=== PATIENT | female | born 1955 | race Caucasian/White ===

== ENCOUNTER → 2019-07-23 15:00 | Oncology outpatient (ONC) | payer OTHER, SELFPAY ==
[2019-07-08 09:07] VITALS: BP 121/75; PULSE 57; RESP 15; TEMP 37.1; O2SAT 98
[2019-07-08] MEDS: IRON SUCROSE 100 MG/5 ML VIAL 25 MG IV (09:22)
[2019-07-08] MEDS: IRON SUCROSE 175 MG in SODIUM CHLORIDE 0.9% 100 ML 435 ML IV (09:44)
[2019-07-10 09:16] VITALS: BP 117/77; PULSE 67; RESP 16; TEMP 36.8; O2SAT 97
[2019-07-10] MEDS: IRON SUCROSE 200 MG in SODIUM CHLORIDE 0.9% 100 ML 440 ML IV (09:21)
[2019-07-16] MEDS: IRON SUCROSE 200 MG in SODIUM CHLORIDE 0.9% 100 ML 440 ML IV (09:22)
[2019-07-16 09:30] VITALS: BP 121/81; PULSE 58; RESP 18; TEMP 36.4; O2SAT 98
[2019-07-21] MEDS: IRON SUCROSE 200 MG in SODIUM CHLORIDE 0.9% 100 ML 440 ML IV (15:24)
[2019-07-21 15:31] VITALS: BP 125/73; PULSE 56; RESP 18; TEMP 36.8; O2SAT 96
[2019-07-23 15:42] VITALS: PULSE 66; RESP 16; TEMP 36.8; O2SAT 99
[2019-07-23] MEDS: IRON SUCROSE 200 MG in SODIUM CHLORIDE 0.9% 100 ML 440 ML IV (15:43)
== END ==
PROVIDERS: Visit Provider Internal Medicine
DX: E61.1 Iron deficiency (principal)
CPT/HCPCS: 96365; J1756

== ENCOUNTER → 2019-09-23 14:00 | Outpatient (ROUT) | payer OTHER, SELFPAY ==
[2019-09-23 14:13] LABS: Add Manual Diff / Slide Review NO; Basophils Absolute Auto 0 /uL (0-100); Basophils Percent Auto 0.4 % (0-2); Eosinophils Absolute Auto 100 /uL (0-450); Eosinophils Percent Auto 1.5 % (2-4); Hematocrit 41.4 % (36-46); Hemoglobin 14.1 g/dL (12.0-16.0); Lymphocytes Absolute Auto 2600 /uL (1100-4500); Lymphocytes Percent Auto 35.9 % (25-40); Mean Corpuscular Hemoglobin 31.3 PG (26-34); Mean Corpuscular Volume 92.3 fL (80-100); Monocytes Absolute Auto 600 /uL (0-900); Monocytes Percent Auto 7.9 % (3-14); Neutrophils Absolute Auto 4000 /uL (1500-7000); Neutrophils Percent Auto 54.3 % (50-75); Platelet Count 202 X10^3/uL (150-400); Red Blood Cell Count 4.49 X10^6/uL (4.0-5.2); Red Cell Distribution Width 16.6 % (11.6-14.8); White Blood Cell Count 7.3 X10^3/uL (4.5-11.0)
[2019-09-23 14:19] LABS: Iron 159 ug/dL (37-170)
[2019-09-23 14:22] LABS: Alanine Aminotransferase 40 IU/L (<35); Albumin 4.3 g/dL (3.5-5.0); Albumin Globulin Ratio 1.7 (1.0-2.8); Alkaline Phosphatase 84 U/L (38-126); Aspartate Aminotransferase 37 IU/L (14-36); Bilirubin Total 0.3 mg/dL (0.2-1.3); Blood Urea Nitrogen 13 mg/dL (7-17); Carbon Dioxide 28 mmol/L (22-32); Chloride 104 mmol/L (98-107); Estimated Glomerular Filt Rate > 60.0 mL/min (>60); Globulin 2.5 g/dL (1.7-4.1); Glucose 93 mg/dL (80-110); HEMOLYSIS < 15 (0-50); Potassium 4.3 mmol/L (3.4-5.1); Sodium 141 mmol/L (137-145); Total Protein 6.8 g/dL (6.3-8.2)
[2019-09-23 14:26] LABS: Transferrin 297 mg/dL (206-381)
[2019-09-23 14:52] LABS: TSH w/ Reflex to FT4 1.64 uIU/mL (0.47-4.68)
[2019-09-23 16:00] LABS: Vitamin D 25 Hydroxy (D3) 53.6 ng/mL (30.0-100.0)
[2019-09-26 14:02] LABS: HEMOLYSIS < 15 (0-50); Percent Iron Saturation 46 % (15-50); Total Iron Binding Capacity 343 ug/dL (265-497)
== END ==
PROVIDERS: Visit Provider Internal Medicine
DX: R03.0 Elevated blood-pressure reading, without diagnosis of hypertension (principal); E61.1 Iron deficiency; L65.9 Nonscarring hair loss, unspecified
CPT/HCPCS: 80053; 82306; 82728; 83540; 83550; 84443; 85025

== ENCOUNTER → 2020-05-25 12:14 | Outpatient (CLI) | payer OTHER, SELFPAY ==
[2020-05-25 12:53] LABS: Add Manual Diff / Slide Review NO; Basophils Absolute Auto 0 /uL (0-100); Basophils Percent Auto 0.1 % (0-2); Eosinophils Absolute Auto 0 /uL (0-450); Eosinophils Percent Auto 0.2 % (2-4); Hematocrit 43.7 % (36-46); Hemoglobin 15.2 g/dL (12.0-16.0); Lymphocytes Absolute Auto 800 /uL (1100-4500); Lymphocytes Percent Auto 11.3 % (25-40); Mean Corpuscular HGB Conc 34.9 % (30-36); Mean Corpuscular Hemoglobin 32.8 PG (26-34); Mean Corpuscular Volume 94.1 fL (80-100); Monocytes Absolute Auto 400 /uL (0-900); Monocytes Percent Auto 5.3 % (3-14); Neutrophils Absolute Auto 5900 /uL (1500-7000); Neutrophils Percent Auto 83.1 % (50-75); Platelet Count 156 X10^3/uL (150-400); Red Blood Cell Count 4.65 X10^6/uL (4.0-5.2); Red Cell Distribution Width 12.5 % (11.6-14.8)
[2020-05-25 13:06] LABS: Alanine Aminotransferase 35 IU/L (<35); Albumin 4.5 g/dL (3.5-5.0); Albumin Globulin Ratio 1.5 (1.0-2.8); Alkaline Phosphatase 79 U/L (38-126); Aspartate Aminotransferase 42 IU/L (14-36); BUN Creatinine Ratio 10.7 (6-22); Bilirubin Total 0.5 mg/dL (0.2-1.3); Blood Urea Nitrogen 6 mg/dL (7-17); Calcium 9.8 mg/dL (8.4-10.2); Carbon Dioxide 26 mmol/L (22-32); Chloride 105 mmol/L (98-107); Estimated Glomerular Filt Rate > 60.0 mL/min (>60); Glucose 115 mg/dL (80-110); HEMOLYSIS < 15 (0-50); Potassium 4.4 mmol/L (3.4-5.1); Sodium 140 mmol/L (137-145); Total Protein 7.5 g/dL (6.3-8.2)
--- NOTE | 2020-05-25 13:26 | DI.CT.S_ITS ---
PROCEDURE: CT ABDOMEN PELVIS W CON INDICATIONS: left lower quad pain x 1 week TECHNIQUE: After the administration of oral and intravenous contrast, 5 mm thick sections acquired from the diaphragms to the symphysis. 5 mm thick coronal and sagittal reformats were performed. For radiation dose reduction, the following was used: automated exposure control, adjustment of mA and/or kV according to patient size. COMPARISON: None. FINDINGS: Image quality: Excellent. ABDOMEN: Lung bases: Lung bases are clear. Heart size is normal. Trace pericardial effusion Solid organs: Hepatic steatosis. There is a 2.4 cm cyst in the left hepatic lobe, and a 2.1 x 3.0 cm cyst in the left hepatic lobe inferiorly. A couple of tiny subcapsular nodules in the anterior left hepatic lobe are also likely cysts.. Liver is normal in size and enhancement. Gallbladder is normal . Biliary system is non-dilated. Pancreas enhances normally. Spleen is normal in size and enhancement. No adrenal nodules. Kidneys are normal in size and enhancement, without hydronephrosis. Peritoneum and bowel: There is diffuse colonic wall thickening consistent with colitis. There is gastric antral thickening. There may be gastric antral thickening. Stomach, small bowel, and colon loops are normal in caliber. Appendix is normal, as well as the terminal ileum. No free fluid or air. Nodes and vessels: No retroperitoneal or mesenteric adenopathy. Aorta and inferior vena cava are normal in caliber. Miscellaneous: No ventral hernias. PELVIS: Genitourinary: Bladder wall thickness is normal. Myomatous uterus. There is a paraovarian cyst in the left ovary. No free fluid in pelvis . Miscellaneous: No inguinal hernias or adenopathy. Bones: No suspicious bony lesions. No vertebral body compression fractures. IMPRESSION: 1. Diffuse colonic wall thickening consistent with colitis. Etiologies may be infectious colitis versus inflammatory bowel disease. 2. Question gastric antral thickening. 3. Mild diverticulosis without diverticulitis. 4. Uterine fibroids. 5. Trace pericardial effusion. Dictated by: Andrew Hdez M.D. on 05/25/2020 at 15:40 Approved by: Andrew Hdez M.D. on 05/25/2020 at 15:56
== END ==
PROVIDERS: PCP Internal Medicine; Referring Provider Physician Assistant; Visit Provider Physician Assistant
DX: R10.32 Left lower quadrant pain (principal); R19.7 Diarrhea, unspecified; K76.0 Fatty (change of) liver, not elsewhere classified; K76.89 Other specified diseases of liver; K57.90 Diverticulosis of intestine, part unspecified, without perforation or abscess without bleeding; D25.9 Leiomyoma of uterus, unspecified
CPT/HCPCS: 36415; 74177; 80053; 85025; Q9967